=== PATIENT | female | born 1975 | race Caucasian/White ===

== ENCOUNTER 2017-12-11 18:30 | Emergency (ER) | payer OTHER ==
--- NOTE | 2017-12-11 19:00 | ED Physician Documentation ---
General Adult - HISTORIAN Historian: patient - HPI Chief Complaint: Fall Onset: minutes Further Comments: yes (42 year old female patient from [facility] brought in via EMS after a fall outside her [facility]. Staff in ER was not present in home. Call to home - staff reports patient was sitting outside, stood up and lost her balance, fell back and hit her head on the stair. No LOC, reports patient has a very unsteady gait. Last tetanus 07/2017.) - ROS CONST: no problems EYES/ENT: none CVS/RESP: none GI/: none MS/SKIN/LYMPH: none NEURO/PSYCH: difficulty walking (chronic). denies: headache - PAST HX Past History: other (Mental retardation, chronic erythromelagia, CVA with left side weakness, chronic constipation, incontinence, mood disorder, Fe Def Anemia, GERD, Nonverbal) - SOCIAL HX Smoking History: non-smoker - FAMILY HX Family History: No - REVIEWED ASSESSMENTS Nursing Assessment Reviewed: Yes Vitals Reviewed: Yes <DENNY MAE - Last Filed: 12/11/17 19:48> <Jasiel Hill - Last Filed: 12/11/17 21:44> - PAST HX Allergies/Adverse Reactions: Allergies Allergy/AdvReac Type Severity Reaction Status Date / Time haloperidol [From Haldol] Allergy Verified 12/11/17 19:03 haloperidol lactate Allergy Verified 12/11/17 19:03 [From Haldol] shellfish derived Allergy Verified 12/11/17 19:03 - VITAL SIGNS Vital Signs: Vital Signs Temp Pulse Resp BP Pulse Ox 98.5 F 68 16 116/70 98 12/11/17 20:30 12/11/17 20:30 12/11/17 20:30 12/11/17 20:30 12/11/17 20:30 Procedures Wound Location: head (occipital scalp 4.5 cm) Wound Length: 4.5 cm Wound's Depth, Shape: superficial Wound Explored: clean Betadine Prep?: No (ottoniel) Wound Debrided: minimal Wound Repaired With: eros (#6) Layer Closure?: No <Jasiel Hill - Last Filed: 12/11/17 21:44> Progress <DENNY MAE - Last Filed: 12/11/17 19:48> <Jasiel Hill - Last Filed: 12/11/17 21:44> - Progress Progress: triple antibiotic applied to staple site. Apply topical antibiotic such as Neosporin, Bacitracin, or Triple Antibiotic to staple/laceration site twice daily for 7 days. Follow up with primary provider in 7 days for staple removal. (DENNY MAE) CT head: FINDINGS: There is no acute intracranial hemorrhage, midline shift or mass effect. There is an encephalomalacia in the posterior superior right MCA territory compatible with prior infarct. The posterior scalp hematoma is noted. The calvarium is intact. IMPRESSION: No acute intracranial hemorrhage with a posterior scalp hematoma. Prior right posterior superior MCA territory territory infarct In ER triple antibiotic applied to staple site. D/C instructions: Apply topical antibiotic such as Neosporin, Bacitracin, or Triple Antibiotic to staple/laceration site twice daily for 7 days. Follow up with primary provider in 7 days for staple removal. (Jasiel Hill) - Orders Orders: ED Orders Category Date Time Status CT BRAIN W/O CONTRAST Stat Exams 12/11/[address] C-SPINE W/O CONTRAST Stat Exams 12/11/17 Ordered General Adult Physical Exam - PHYSICAL EXAM GENERAL APPEARANCE: mild distress EENT: eye inspection normal, ANA LAURA RESPIRATORY: no resp distress, chest non-tender, breath sounds normal CVS: reg rate & rhythm, heart sounds normal, equal pulses, no murmur, no gallop, PMI nml, no JVD, no friction rub, 24 ABDOMEN: soft, no organomegaly, normal bowel sounds, no abdominal bruit, no distension SKIN: warm/dry, normal color, other (laceration - posterior scalp, 4.5 cm) NEURO: other (at her baseline per staff; nonverbal, calm, cooperative. ) <DENNY MAE - Last Filed: 12/11/17 19:48> Discharge <DENNY MAE - Last Filed: 12/11/17 19:48> Decision to Admit: NO Decision Time: 20:40 <Jasiel Hill - Last Filed: 12/11/17 21:44> Clincal Impression: Minor head trauma, scalp laceration Referrals: Ozzy Pink [Primary Care Provider] - Condition: Stable Disposition: 01 HOME, SELF-CARE
[2017-12-11 21:12] VITALS: BP 116/70
--- NOTE | 2017-12-12 05:54 | Diagnostic Imaging Report ---
DENNY MAE (SOCCER REFEREE) - ER [facility] [address] [facility] [address] [place], [place]. [address] Report Submission Date: Dec 11, 2017 8:23:53 PM CDT Patient Study Name: MIESHA MARKS Date: Dec 11, 2017 7:19:00 PM CDT Modality Type: CT\SR Gender: F Description: CT C-SPINE W/O CONTRAS : 73 Institution: [facility] Physician: DENNY MAE (SOCCER REFEREE) - ER Examination: CT cervical spine History: Pt fell head injury left side (Hx) / ITS.REASON fall (DICOM Hx) Comparison exams: None provided Technique: CT cervical spine axial imaging with sagittal and coronal reconstruction Findings: Sagittal reconstruction demonstrates normal height of the cervical vertebral bodies. No anterior compression deformity. Reversal of the normal curvature. Scattered osteophytes. Coronal reconstruction does not demonstrate locked or perched facets. Mild atlantoaxial degenerative changes. Lung apices anus changes. Axial imaging obtained from the skull base through T1 Lamina and pedicles are intact. No ossific density within the central canal. Scattered facet degenerative changes with central canal and neural foraminal narrowing. No prevertebral soft tissue abnormality. Impression: Multilevel degenerative changes. No evidence for vertebral body compression fracture. Electronically signed on Dec 11, 2017 8:23:53 PM CDT by: Scott GERARD
--- NOTE | 2017-12-12 05:54 | Diagnostic Imaging Report ---
DENNY MAE (WILDLIFE VETERINARIAN) - ER [facility] [address] [facility] [address] [address] Report Submission Date: Dec 11, 2017 8:13:51 PM CDT Patient Study Name: MIESHA MARKS Date: Dec 11, 2017 7:15:05 PM CDT Modality Type: CT\SR Gender: F Description: CT BRAIN W/O CONTRAST : 73 Institution: [facility] Physician: DENNY MAE (WILDLIFE VETERINARIAN) - ER CT brain noncontrast CLINICAL HISTORY: Pt fell head injury left side (Hx) / ITS.REASON fall (DICOM Hx) TECHNIQUE: 5 mm contiguous axial images of the brain, noncontrast. FINDINGS: There is no acute intracranial hemorrhage, midline shift or mass effect. There is an encephalomalacia in the posterior superior right MCA territory compatible with prior infarct. The posterior scalp hematoma is noted. The calvarium is intact. IMPRESSION: No acute intracranial hemorrhage with a posterior scalp hematoma. Prior right posterior superior MCA territory territory infarct Electronically signed on Dec 11, 2017 8:13:51 PM CDT by: Can GERARD
== END 2017-12-11 20:45 | disposition home or self-care (01) ==
LOC: ED 18:30
DX: S01.01XA Laceration without foreign body of scalp, initial encounter (principal); S09.90XA Unspecified injury of head, initial encounter; W19.XXXA Unspecified fall, initial encounter; Y92.129 Unspecified place in nursing home as the place of occurrence of the external cause; Y93.9 Activity, unspecified; Y99.9 Unspecified external cause status
CPT/HCPCS: 12002; 70450; 72125; 99283

== ENCOUNTER 2017-12-21 15:21 | Emergency (ER) | payer OTHER ==
--- NOTE | 2017-12-21 16:02 | ED Physician Documentation ---
General Adult - HISTORIAN Historian: paramedics, other (caretakers) - HPI Stated Complaint: fall, head laceration Chief Complaint: General Adult Onset: minutes Timing: still present Severity: moderate Further Comments: yes (Pt is a 42 yo female with severe MR from the [facility] who fell backwards and struck the back of her head and has a laceration. Pt seemed dazed after event. It is uncertain whether pt may have had brief LOC. Pt had a similar incident with scalp laceration (and recent head CT) on 12/11/17.) - ROS CONST: other (non-verbal pt cannot give ROS) - PAST HX Past History: other (Mental Retardation, non-verbal; chronic erythromelagia; CVA w L-sided weakness; mood d/o; iron def. anemia; GERD.) Allergies/Adverse Reactions: Allergies Allergy/AdvReac Type Severity Reaction Status Date / Time haloperidol [From Haldol] Allergy Verified 12/21/17 16:00 haloperidol lactate Allergy Verified 12/21/17 16:00 [From Haldol] shellfish derived Allergy Verified 12/21/17 16:00 Home Medications: Ambulatory Orders Medication Instructions Recorded Acetaminophen [Tylenol] 650 mg PO PRN 12/12/17 Aspirin [Aspirin EC] 325 mg PO DAILY 12/12/17 Benztropine Mesylate [Cogentin] 0.5 mg PO TID 12/12/17 Beta-Carotene(A)-Vits C and E 1 tab PO DAILY 12/12/17 [E-400 C-500 & Beta Carotene] Bisacodyl [Dulcolax] 10 mg ENDO PRN 12/12/17 Calcium Carbonate/Vitamin D3 1 tab PO BID 12/12/17 [Oyster Shell 500-Vit D3 200 Tb] Carbamazepine [Tegretol] 200 mg PO TID 12/12/17 Chlorhexidine Gluconate [Peridex] 5 ml PO BID 12/12/17 Clonidine HCl [Catapres] 0.1 mg PO TID 12/12/17 Docusate Sodium [Colace] 200 mg PO TID 12/12/17 Ferrous Sulfate 325 mg PO BID 12/12/17 Lanolin Alcohol/Mo/W.pet/[place] 1 gm TOP BID 12/12/17 [Eucerin Creme] Loratadine [Claritin] 10 mg PO DAILY 12/12/17 Mag Hydrox/Aluminum Hyd/Simeth 15 ml PO PRN 12/12/17 [Mylanta] Magnesium Hydroxide [Milk of 30 ml PO PRN 12/12/17 Magnesia] Medroxyprogesterone Acetate 150 mg IM Q3 12/12/17 [Depo-Provera] Olanzapine [Zyprexa] 15 mg PO BID 12/12/17 Polyethylene Glycol 3350 [Clearlax] 17 gm PO DAILY 12/12/17 Propranolol HCl [Inderal] 10 mg PO BID 12/12/17 Ranitidine HCl 150 mg PO HS 12/12/17 Sennosides [Senna] 8.6 mg PO BID 12/12/17 guaiFENesin DM [Robitussin Dm] 10 ml PO PRN 12/12/17 Hydroxyzine Pamoate [Vistaril] 1 mg PO BID 12/21/17 Trazodone HCl [Desyrel] 1 mg PO HS 12/21/17 - SOCIAL HX Smoking History: non-smoker - FAMILY HX Family History: No - VITAL SIGNS Vital Signs: Vital Signs Temp Pulse Resp BP Pulse Ox 116/70 12/11/17 20:30 - REVIEWED ASSESSMENTS Nursing Assessment Reviewed: Yes Vitals Reviewed: Yes Procedures Wound Location: head (scalp) Wound Length: 2 cm Wound's Depth, Shape: superficial Wound Explored: clean Irrigated w/ Saline (ccs): 20 Betadine Prep?: No Wound Debrided: minimal Wound Repaired With: eros (3) Progress - Progress Progress: pt not cooperative Ativan 1 mg IM no change Midazolam 1 mg IM Triple Antibiotic to staple site in ER. d/c instructions: Minor head trauma. Scalp laceration. Apply topical antibiotic such as Bacitracin, Neosporin, or Triple Antibiotic to Stapled area on scalp twice daily for 5 days. Follow up with primary provider in 5 to 7 days for staple removal. May hold Tegratol tonight after high level per report this am. Follow up with primary provider re: Tegratol dosing. Return to ER if there are new symptoms such as nausea/vomiting, or you have concerns. General Adult Physical Exam - PHYSICAL EXAM GENERAL APPEARANCE: mild distress EENT: ANA LAURA NECK: normal inspection, supple RESPIRATORY: no resp distress, chest non-tender, breath sounds normal CVS: reg rate & rhythm, heart sounds normal ABDOMEN: soft, no organomegaly, normal bowel sounds BACK: normal inspection SKIN: warm/dry EXTREMITIES: non-tender, no evidence of injury NEURO: other (baseline mental status per senior scientist) Discharge Clincal Impression: Head trauma Qualifiers: Encounter type: initial encounter Qualified Code(s): S09.90XA - Unspecified injury of head, initial encounter Scalp laceration Qualifiers: Encounter type: initial encounter Qualified Code(s): S01.01XA - Laceration without foreign body of scalp, initial encounter Referrals: Ozzy Pink [Primary Care Provider] - Condition: Stable Disposition: 01 HOME, SELF-CARE Decision to Admit: NO Decision Time: 17:06
[2017-12-21] MEDS: LORazepam 2 MG/ML VIAL IM ONE ×2 (16:10→16:45)
[2017-12-21] MEDS: LORazepam 2 MG/ML VIAL ONE (16:26)
[2017-12-21] MEDS: MIDAZOLAM HCL 2 MG/2 ML VIAL IM ONE (16:50)
[2017-12-21] MEDS: MIDAZOLAM HCL 5 MG/5 ML VIAL IVP ONE (16:50)
== END 2017-12-21 17:25 | disposition home or self-care (01) ==
LOC: ED 15:27
DX: S09.90XA Unspecified injury of head, initial encounter (principal); S01.01XA Laceration without foreign body of scalp, initial encounter; W19.XXXA Unspecified fall, initial encounter; Y92.129 Unspecified place in nursing home as the place of occurrence of the external cause; Y93.9 Activity, unspecified; Y99.9 Unspecified external cause status
CPT/HCPCS: J2060; J2250; J7030; 12001; 96372; 99283

== ENCOUNTER 2018-02-17 12:36 | Emergency (ER) | payer OTHER ==
--- NOTE | 2018-02-17 12:55 | ED Physician Documentation ---
General Adult - HISTORIAN Historian: patient - HPI Stated Complaint: choking on meat Chief Complaint: General Adult Onset: minutes (30) Timing: better Severity: mild Further Comments: yes (per staff she did choke on ground meat and she feels improved although staff want this checked. No coughing currently. No distress) Last known Well Code/Unknown Code: Known - ROS CONST: no problems - PAST HX Past History: other (CP) Immunizations: UTD Allergies/Adverse Reactions: Allergies Allergy/AdvReac Type Severity Reaction Status Date / Time haloperidol [From Haldol] Allergy Verified 02/17/18 13:21 haloperidol lactate Allergy Verified 02/17/18 13:21 [From Haldol] shellfish derived Allergy Verified 02/17/18 13:21 Home Medications: Ambulatory Orders Medication Instructions Recorded Acetaminophen [Tylenol] 650 mg PO PRN 12/12/17 Aspirin [Aspirin EC] 325 mg PO DAILY 12/12/17 Benztropine Mesylate [Cogentin] 0.5 mg PO TID 12/12/17 Beta-Carotene(A)-Vits C and E 1 tab PO DAILY 12/12/17 [E-400 C-500 & Beta Carotene] Bisacodyl [Dulcolax] 10 mg ENDO PRN 12/12/17 Calcium Carbonate/Vitamin D3 1 tab PO BID 12/12/17 [Oyster Shell 500-Vit D3 200 Tb] Carbamazepine [Tegretol] 200 mg PO TID 12/12/17 Chlorhexidine Gluconate [Peridex] 5 ml PO BID 12/12/17 Clonidine HCl [Catapres] 0.1 mg PO TID 12/12/17 Docusate Sodium [Colace] 200 mg PO TID 12/12/17 Ferrous Sulfate 325 mg PO BID 12/12/17 Lanolin Alcohol/Mo/W.pet/[place] 1 gm TOP BID 12/12/17 [Eucerin Creme] Loratadine [Claritin] 10 mg PO DAILY 12/12/17 Mag Hydrox/Aluminum Hyd/Simeth 15 ml PO PRN 12/12/17 [Mylanta] Magnesium Hydroxide [Milk of 30 ml PO PRN 12/12/17 Magnesia] Medroxyprogesterone Acetate 150 mg IM Q3 12/12/17 [Depo-Provera] Olanzapine [Zyprexa] 15 mg PO BID 12/12/17 Polyethylene Glycol 3350 [Clearlax] 17 gm PO DAILY 12/12/17 Propranolol HCl [Inderal] 10 mg PO BID 12/12/17 Ranitidine HCl 150 mg PO HS 12/12/17 Sennosides [Senna] 8.6 mg PO BID 12/12/17 guaiFENesin DM [Robitussin Dm] 10 ml PO PRN 12/12/17 Hydroxyzine Pamoate [Vistaril] 1 mg PO BID 12/21/17 Trazodone HCl [Desyrel] 1 mg PO HS 12/21/17 - SOCIAL HX Smoking History: non-smoker Alcohol Use: none Drug Use: none - FAMILY HX Family History: No - VITAL SIGNS Vital Signs: Vital Signs Temp Pulse Resp BP Pulse Ox 116/70 12/21/17 17:25 - REVIEWED ASSESSMENTS Nursing Assessment Reviewed: Yes Vitals Reviewed: Yes Progress - Progress Progress: 1335: secretions and drooling increased - awaiting xray results. No s/sx of resp difficulty DG 1420: large amount of beef appearing material was coughed up by pt. She nods head yes when questioned if she feels better. Drooling has stooped. will re Xray due to she will not lay for CT DG 1450: results discussed - pt is not drooling. Drinking easily. Breath sounds remain clear. and pt will follow up with Physician on Tuesday DG ED Results Lab/Radiology - Radiology Radiology Impressions: PA and lateral chest History: Choked on meat. PA and lateral chest dated February 17, 2018 is without prior radiographs for comparison. A limited degree of inspiration was achieved. The cardiomediastinal silhouette is normal. Lungs are clear. Impression: Limited inspiration. No active disease. Electronically signed on Feb 17, 2018 1:44:13 PM CDT by: Zoya Zimmerman Cervical spine History: Choked on meet AP and lateral projections of the soft tissues of the neck were obtained which demonstrate abnormal soft tissue density at the level of the upper most esop hagus concerning for either a mass or a lodged swallowed object such as meat. The epiglottis and aryepiglottic folds are normal. The visualized trachea appears normal. Minor anterior marginal osteophytes are present at several levels of the cervical spine. Impression: At the level of the uppermost esophagus, there is abnormal soft tissue density consistent either with a soft tissue mass or with a soft tissue swallowed object such as meat and swelling of the surrounding mucosa. These findings were called to Lucia Couch NP, on February 17, 2018 at 1:45 p.m. Electronically signed on Feb 17, 2018 1:51:19 PM CDT by: Zoya Zimmerman Soft tissue neck History: The patient coughed up a large chunk of meat and refused to lay for a CT AP and lateral projections of the soft tissues of the neck were obtained. The soft tissue density which was previously present at the uppermost esophagus is no longer seen. However, there is abnormal soft tissue swelling and/or pot ential soft tissue mass in this location. If the patient does not wish to undergo CT at this point in time, either follow-up radiographs or a follow-up CT would be recommended to ensure resolution of this persistent soft tissue swelling. Impression: The soft tissue density/foreign object previously noted at the uppermost soft gas is no longer present. However, there is persistent soft tissue swelling and/or potential soft tissue mucosal mass at the uppermost esophagus. If the patient does not wish to undergo CT at this point in time, either follow-up radiographs or a follow-up CT would be recommended to ensure resolution of this persisting abnormal mucosal density. Electronically signed on Feb 17, 2018 2:59:12 PM CDT by: Zoya Zimmerman General Adult Physical Exam - PHYSICAL EXAM GENERAL APPEARANCE: no distress EENT: eye inspection normal, ENT inspection normal, pharynx normal, no signs of dehydration, other (she is drooling - staff says this is normal. She is able to speak ) NECK: normal inspection RESPIRATORY: no resp distress, chest non-tender, breath sounds normal CVS: reg rate & rhythm, heart sounds normal, equal pulses, no murmur ABDOMEN: soft, no distension BACK: normal inspection SKIN: warm/dry, normal color EXTREMITIES: non-tender, normal range of motion, no edema NEURO: cognition normal Discharge Clincal Impression: Choked on food Referrals: Ozzy Pink [Primary Care Provider] - 2 Days Comments: 1. Clear liquids and soft foods only as tolerated 2. Follow up with PCP in 2-4 days for repeat xray possible ct scan 3. Any concerns return to ER Condition: Stable Disposition: 01 HOME, SELF-CARE Decision to Admit: NO Date of Decison to Admit: 02/17/18 Decision Time: 15:17
[2018-02-17 15:10] LABS: BASO % 0.6 % (0.0-1.5); EOS % 4.5 % (0.0-6.8); LYMPH ABS # 3.05 thou/uL (0.60-4.00); MCH. 28.4 pg (28.0-34.0); MCV 90.4 fL (80.0-100.0); MONOCYTE % 6.9 % (0.0-11.0); MONOCYTE ABS # 0.48 thou/uL (0.00-0.90); PLATELET COUNT 217 thou/uL (130-400)
[2018-02-17 15:31] VITALS: BP 107/68
--- NOTE | 2018-02-17 17:50 | Diagnostic Imaging Report ---
LUCIA CHAPARRO [facility] [address] [address] Report Submission Date: Feb 17, 2018 1:51:19 PM CDT Patient Study Name: MIESHA MARKS Date: Feb 17, 2018 1:15:15 PM CDT Modality Type: DX Gender: F Description: SPINE : 73 Institution: [facility] Physician: LUCIA CHAPARRO Cervical spine History: Choked on meet AP and lateral projections of the soft tissues of the neck were obtained which demonstrate abnormal soft tissue density at the level of the upper most esophagus concerning for either a mass or a lodged swallowed object such as meat. The epiglottis and aryepiglottic folds are normal. The visualized trachea appears normal. Minor anterior marginal osteophytes are present at several levels of the cervical spine. Impression: At the level of the uppermost esophagus, there is abnormal soft tissue density consistent either with a soft tissue mass or with a soft tissue swallowed object such as meat and swelling of the surrounding mucosa. These findings were called to Lucia Couch NP, on February 17, 2018 at 1:45 p.m. Electronically signed on Feb 17, 2018 1:51:19 PM CDT by: Zoya GERARD
--- NOTE | 2018-02-17 17:51 | Diagnostic Imaging Report ---
JOSÉ LUIS CHAPARRO [facility] [address] [address] Report Submission Date: Feb 17, 2018 2:59:12 PM CDT Patient Study Name: MIESHA MARKS Date: Feb 17, 2018 2:22:00 PM CDT Modality Type: DX Gender: F Description: SPINE : 73 Institution: [facility] Physician: JOSÉ LUIS CHAPARRO Soft tissue neck History: The patient coughed up a large chunk of meat and refused to lay for a CT AP and lateral projections of the soft tissues of the neck were obtained. The soft tissue density which was previously present at the uppermost esophagus is no longer seen. However, there is abnormal soft tissue swelling and/or potential soft tissue mass in this location. If the patient does not wish to undergo CT at this point in time, either follow-up radiographs or a follow-up CT would be recommended to ensure resolution of this persistent soft tissue swelling. Impression: The soft tissue density/foreign object previously noted at the uppermost soft gas is no longer present. However, there is persistent soft tissue swelling and/or potential soft tissue mucosal mass at the uppermost esophagus. If the patient does not wish to undergo CT at this point in time, either follow-up radiographs or a follow-up CT would be recommended to ensure resolution of this persisting abnormal mucosal density. Electronically signed on Feb 17, 2018 2:59:12 PM CDT by: Zoya GERARD
--- NOTE | 2018-02-17 17:54 | Diagnostic Imaging Report ---
JOSÉ LUIS CHAPARRO [facility] [address] [facility] [address] [place], [place]. [address] Report Submission Date: Feb 17, 2018 1:44:13 PM CDT Patient Study Name: MIESHA MARKS Date: Feb 17, 2018 1:13:01 PM CDT Modality Type: DX Gender: F Description: CHEST : 73 Institution: [facility] Physician: JOSÉ LUIS CHAPARRO PA and lateral chest History: Choked on meat. PA and lateral chest dated February 17, 2018 is without prior radiographs for comparison. A limited degree of inspiration was achieved. The cardiomediastinal silhouette is normal. Lungs are clear. Impression: Limited inspiration. No active disease. Electronically signed on Feb 17, 2018 1:44:13 PM CDT by: Zoya GERARD
--- NOTE | 2018-02-17 17:55 | Diagnostic Imaging Report ---
JOSÉ LUIS CHAPARRO [facility] [address] [facility] [address] [place], [place]. [address] Report Submission Date: Feb 17, 2018 2:55:09 PM CDT Patient Study Name: MIESHA MARKS Date: Feb 17, 2018 2:28:28 PM CDT Modality Type: DX Gender: F Description: CHEST : 73 Institution: [facility] Physician: JOSÉ LUIS CHAPARRO Examination: PA and lateral chest. History: Evaluate lung bro. Comparison exam: 17 February 2018 Findings: PA and lateral views of the chest demonstrates a normal cardiac and mediastinal silhouette. No focal infiltrate. No blunting of the costophrenic margins. Osseous structures are appropriate for age. Impression: No acute pulmonary process. Electronically signed on Feb 17, 2018 2:55:09 PM CDT by: Scott GERARD
== END 2018-02-17 15:20 | disposition home or self-care (01) ==
LOC: ED 12:36
DX: R09.89 Other specified symptoms and signs involving the circulatory and respiratory systems (principal); T18.120A Food in esophagus causing compression of trachea, initial encounter; Y92.9 Unspecified place or not applicable; Y93.9 Activity, unspecified; Y99.9 Unspecified external cause status
CPT/HCPCS: 70360; 71046; 85025; 99283; S1016